=== PATIENT | female | born 1940 | race Two or more races ===

== ENCOUNTER → 2024-04-28 | Outpatient (CLI) | payer MEDICARE, SELFPAY ==
[2024-04-28 16:05] LABS: Collection Type, Urine Clean Catch
[2024-04-28 16:34] LABS: Bacteria,Urine 1+; Bilirubin,Urine Negative (Negative); Blood,Urine Negative (Negative); Color,Urine Lt-Yellow (Lt Yel-Yel); Glucose, Urine Negative (Negative); Ketones,Urine Negative (Negative); Leukocyte Esterase,Urine Positive (Negative); Nitrite,Urine Negative (Negative); PH,Urine 6.5 (5.0-7.0); Protein,Urine Negative (Neg - Trace); RBC,Urine 2 /hpf (0-3); Specific Gravity,Urine 1.008 (1.001-1.035); Squamous Epithelial Cell,Urine 1 /hpf (0-5); Urobilinogen,Urine Negative mg/dL (0.0-1.0); WBC,Urine 3 /hpf (0-5)
[2024-04-28 16:50] LABS: Clarity,Urine Hazy (Clear/Hazy)
== END | disposition home or self-care (01) ==
LOC: SLDO 14:25
PROVIDERS: PCP Family Medicine; Referring Provider Family Medicine; Visit Provider Family Medicine
DX: N30.00 Acute cystitis without hematuria (principal)
CPT/HCPCS: 81001; 87077; 87086; 87186

== ENCOUNTER → 2024-08-23 | Outpatient (CLI) | payer MEDICARE, MEDICAID, SELFPAY ==
[2024-08-23 10:51] LABS: Basophils % (Auto) 0 % (0-2.5); Eosinophils % (Auto) 0 % (0-10); Hematocrit 32.2 % (36.0-46.0); Hemoglobin 10.8 g/dL (12.0-16.0); Immature Granulocytes % (Auto) 4 % (0-0); Immature Granulocytes Auto 0.21 Thou/mm3 (0.00-0.00); Lymphocytes # (Auto) 1.5 Thou/mm3 (1.0-4.8); Lymphocytes % (Auto) 30 % (10-50); Mean Corpuscular HGB Conc 33.5 g/dl (31.0-37.0); Mean Corpuscular Hemoglobin 33.6 pg (25.0-35.0); Mean Corpuscular Volume 100 fL (80-100); Monocytes # (Auto) 0.6 Thou/mm3 (0.0-0.8); Monocytes % (Auto) 11 % (0-12); Neutrophils # (Auto) 2.6 Thou/mm3 (1.8-7.7); Neutrophils % (Auto) 54 % (37-80); Nucleated Red Blood Cell % 0 /100 WBC (0); Platelet Count 174 Thou/mm3 (140-440); RDW Standard Deviation 45.8 fL (36.4-46.3); Red Blood Count 3.21 Miln/mm3 (4.00-5.20); White Blood Count 4.8 Thou/mm3 (3.6-11.0)
[2024-08-23 11:07] LABS: Collection Type, Urine Clean Catch
[2024-08-23 11:08] LABS: Alanine Aminotransferase 13 U/L (10-49); Albumin, Serum 4.5 gm/dL (3.4-4.8); Albumin/Globulin Ratio 1.4 (1.2-2.2); Alkaline Phosphatase 70 U/L (46-116); Anion Gap 9 (7-16); Aspartate Amino Transferase 22 U/L (0-34); BUN/Creatinine Ratio 19 Ratio (12-20); Bilirubin,Total 0.6 mg/dL (0.3-1.2); Blood Urea Nitrogen 19 mg/dL (9-23); Carbon Dioxide 28.3 mMol/L (20.0-31.0); Cardiac Risk Estimate 3.2 RATIO (3.7-5.6); Chloride 106 mMol/L (98-107); Cholesterol 185 mg/dL (132-200); Globulin 3.3 gm/dL (2.3-3.5); Glucose 109 mg/dL (74-106); HDL Cholesterol 58 mg/dL (40-60); LDL Cholesterol,Calculated 107 mg/dL (0-130); Osmolality,Calculated 288 (275-295); Potassium 3.7 mMol/L (3.4-5.1); Sodium 143 mMol/L (136-145); Thyroid Stimulating Hormone 0.88 uIU/mL (0.55-4.78); Total Protein 7.8 gm/dL (5.7-8.2); Triglycerides 99 mg/dL (30-150); eGFR 55 See Note
[2024-08-23 11:28] LABS: Bilirubin,Urine Negative (Negative); Blood,Urine Trace (Negative); Clarity,Urine Clear (Clear/Hazy); Color,Urine Lt-Yellow (Lt Yel-Yel); Glucose, Urine Negative (Negative); Ketones,Urine Negative (Negative); Leukocyte Esterase,Urine Positive (Negative); Nitrite,Urine Negative (Negative); PH,Urine 6.5 (5.0-7.0); Protein,Urine Negative (Neg - Trace); RBC,Urine 3 /hpf (0-3); Specific Gravity,Urine 1.011 (1.001-1.035); Squamous Epithelial Cell,Urine 1 /hpf (0-5); Urobilinogen,Urine Negative mg/dL (0.0-1.0); WBC,Urine 4 /hpf (0-5)
== END | disposition home or self-care (01) ==
LOC: COPL 10:08
PROVIDERS: PCP Family Medicine; Referring Provider Family Medicine; Visit Provider Family Medicine
DX: I10 Essential (primary) hypertension (principal)
CPT/HCPCS: 36415; 80053; 80061; 81001; 84443; 85025

== ENCOUNTER 2024-09-06 18:08 | Emergency (ER) | payer MEDICARE, MEDICAID, SELFPAY ==
[2024-09-06 18:50] VITALS: BP 171/71; PULSE 74; RESP 20; TEMP 36.7; O2SAT 95; BMI 20.5
--- NOTE | 2024-09-06 19:28 | XR_ITS ---
Examination: PA lateral chest 2 views TECHNIQUE: Upright PA and lateral chest 2 views Date and time: September 06, 20242055 hours INDICATIONS: Night sweats weakness shortness of breath one week. FINDINGS: Normal heart size. Ectatic thoracic aorta. Hyperexpansion with increased AP dimension chest Kyphosis dorsal spine with prominent osteopenia IMPRESSION: Significant hyperexpansion No pneumonia or pulmonary edema
[2024-09-06 19:44] LABS: Collection Type, Urine Clean Catch
--- NOTE | 2024-09-06 19:59 | PD.EDURI ---
Upper Respiratory Inf. RME/HPI General Chief Complaint: Flu Like Symptoms Stated Complaint: LACK OF APPETITE, COLD SWEATS, Time Seen by Provider: 09/06/24 19:26 Arrival date/time: 09/06/24 18:08 84-year-old female presents with daughter who shows concern as patient believes that there is something terribly wrong with her as she has been having night sweats and during the day she covers her self with a heavy blanket. Denies any other symptoms. Mode of arrival: ambulatory Limitations: no limitations RME / HPI MD Complaint: other (Night sweats, daytime chills) Onset (ago): week(s) (2 weeks) Severity: moderate Severity scale (1-10): 5 Relieving factors: nothing Related Data Allergies Allergy/AdvReac Type Severity Reaction Status Date / Time NKA* Allergy Uncoded 09/06/24 18:11 Review of Systems Constitutional Constitutional: Reports system reviewed and no additional complaints, except as documented Eyes Eyes: Reports system reviewed and no additional complaints, except as documented, Denies dry eyes, Denies exophthalmos and Reports floaters Cardiovascular Cardiovascular: Denies chest pain with activity and Denies claudication ED Exam General Limitations: Present no limitations General appearance: Present alert and in no apparent distress Head Head exam: Present atraumatic Eye Eye exam: Present normal appearance, PERRL and EOMI ENT ENT exam: Present normal exam, normal oropharynx and mucous membranes moist Neck Neck exam: Present normal inspection, full ROM and trachea midline Chest Chest inspection: Present normal inspection and symmetric chest wall rise Respiratory Respiratory exam: Present normal lung sounds bilaterally Cardiovascular Cardiovascular exam: Present regular rate, normal rhythm and normal heart sounds Abdominal Exam Abdominal exam: Present soft and normal bowel sounds Extremities Exam Extremities exam: Present normal inspection and full ROM Back Exam Back exam: Present normal inspection and full ROM Neurological Exam Neurological exam: Present alert, oriented X3 and CN II-XII intact Psychiatric Psychiatric exam: Present normal affect and normal mood Skin Skin exam: Present warm, dry, intact and normal color Course Quality Measures none Orders Category Date Time Status EKG (ED ONLY) *Do not use* NOW Care 09/06/24 22:[address] head/brain wo con Stat Exams 09/06/24 22:25 Taken EKG (ED Only) Urgent Exams 09/06/24 22:25 Draft XR chest 2V Stat Exams 09/06/24 19:28 Completed CBC Stat Lab 09/06/24 19:42 Completed CMP [Comprehensive Metabolic Panel] Stat Lab 09/06/24 19:42 Completed Free T3 Stat Lab 09/06/24 19:42 Completed Free T4 (Free Thyroxine) Stat Lab 09/06/24 19:42 Completed Mag [Magnesium] Stat Lab 09/06/24 19:42 Completed Troponin I Stat Lab 09/06/24 19:42 Completed UA [Urinalysis] Stat Lab 09/06/24 19:40 Completed Vital Signs Vital signs: Vital Signs Temperature 98.1 F 09/06/24 18:50 Pulse Rate 74 09/06/24 18:50 Respiratory Rate 20 09/06/24 18:50 Blood Pressure 171/71 H 09/06/24 18:50 Pulse Oximetry (%) 95 09/06/24 18:50 Oxygen Delivery Method Room Air 09/06/24 18:50 Pulse ox 95% room air Upper Respiratory Infection MDM Narrative MDM Narrative:: Patient will be made aware of her CT of the head as well as the blood work including the urine. Patient is to primary care physician for follow-up to today's visit and she should do this soon. Patient data External records reviewed:: Other (specify) Clinical information provided by:: none Social determinants that could affect healthcare access:: none Patient has the following chronic illnesses:: N/A How is presenting disease/condition affected by chronic disease/condition?: no chronic disease Evaluation data The following diagnostics were reviewed and interpreted by me:: other (specify) Lab and/or radiology exams considered but not ordered:: N/A Interpretation Summary: N/A Medications / Prescriptions Medications or Prescriptions considered but not ordered:: N/A Medication administrations:: N/A Consultations Consultation(s) initiated? (list below): No Diagnosis Upper Respiratory Differential Diagnosis: sinusitis, bronchitis, influenza and pharyngitis Most likely diagnosis given after review of the tests above:: N/A Admission Indicated Admission indicated?: not indicated Admission Request Was there a request for admission?: No Disposition Plan Disposition Plan: Discharge Discharge Attestation Discharge Attestation: The patient and all family members were given an opportunity to ask questions and understood the discharge instructions. Discharge instructions specifically effects, indications for sooner follow up or return to the emergency department, and the expected course of current diagnosis. Patient condition: Stable Discharge Plan Plan Patient Disposition: HOME (Self Care) Discharge Disposition comment: Patient discharged in no apparent distress Patient condition on transfer: Stable Prescriptions/Referrals Referrals: Catarina Noguera MD [Primary Care Provider] - In 1 week Problem List Clinical Impression: Generalized weakness Patient/Caregiver Discharge Instructions Discharge Activity: activity as tolerated Print Language: Andorran PA/PILOT SAFETY INSPECTOR Supervising Physician PA/PILOT SAFETY INSPECTOR Supervising Physician: MARLI
[2024-09-06 20:00] LABS: Bilirubin,Urine Negative (Negative); Blood,Urine Negative (Negative); Clarity,Urine Clear (Clear/Hazy); Color,Urine Lt-Yellow (Lt Yel-Yel); Glucose, Urine Negative (Negative); Ketones,Urine Negative (Negative); Leukocyte Esterase,Urine Negative (Negative); Nitrite,Urine Negative (Negative); PH,Urine 7.5 (5.0-7.0); Protein,Urine Negative (Neg - Trace); RBC,Urine 6 /hpf (0-3); Specific Gravity,Urine 1.015 (1.001-1.035); Squamous Epithelial Cell,Urine 1 /hpf (0-5); Urobilinogen,Urine Negative mg/dL (0.0-1.0); WBC,Urine 2 /hpf (0-5)
[2024-09-06 20:01] LABS: Basophils % (Auto) 0 % (0-2.5); Eosinophils % (Auto) 0 % (0-10); Hematocrit 31.7 % (36.0-46.0); Hemoglobin 10.9 g/dL (12.0-16.0); Immature Granulocytes % (Auto) 3 % (0-0); Immature Granulocytes Auto 0.25 Thou/mm3 (0.00-0.00); Lymphocytes # (Auto) 1.9 Thou/mm3 (1.0-4.8); Lymphocytes % (Auto) 25 % (10-50); Mean Corpuscular HGB Conc 34.4 g/dl (31.0-37.0); Mean Corpuscular Hemoglobin 34.2 pg (25.0-35.0); Mean Corpuscular Volume 99 fL (80-100); Monocytes # (Auto) 0.9 Thou/mm3 (0.0-0.8); Monocytes % (Auto) 11 % (0-12); Neutrophils # (Auto) 4.8 Thou/mm3 (1.8-7.7); Neutrophils % (Auto) 61 % (37-80); Nucleated Red Blood Cell % 0 /100 WBC (0); Platelet Count 190 Thou/mm3 (140-440); RDW Standard Deviation 45.8 fL (36.4-46.3); Red Blood Count 3.19 Miln/mm3 (4.00-5.20); White Blood Count 7.9 Thou/mm3 (3.6-11.0)
[2024-09-06 20:23] LABS: Alanine Aminotransferase 12 U/L (10-49); Albumin, Serum 4.7 gm/dL (3.4-4.8); Albumin/Globulin Ratio 1.5 (1.2-2.2); Alkaline Phosphatase 90 U/L (46-116); Anion Gap 7 (7-16); Aspartate Amino Transferase 23 U/L (0-34); BUN/Creatinine Ratio 24 Ratio (12-20); Bilirubin,Total 0.3 mg/dL (0.3-1.2); Blood Urea Nitrogen 22 mg/dL (9-23); Calcium 10.2 mg/dL (8.3-10.6); Calcium (Corrected) 10.2 mg/dL (8.5-10.1); Carbon Dioxide 27.3 mMol/L (20.0-31.0); Chloride 102 mMol/L (98-107); Creatinine (Component) 0.9 mg/dL (0.6-1.3); Estimated Creatinine Clearance 27.3 mL/min (>60); Globulin 3.2 gm/dL (2.3-3.5); Glucose 121 mg/dL (74-106); Osmolality,Calculated 276 (275-295); Potassium 4.1 mMol/L (3.4-5.1); Sodium 136 mMol/L (136-145); Total Protein 7.9 gm/dL (5.7-8.2); eGFR > 60 See Note
--- NOTE | 2024-09-06 22:25 | XR_ITS ---
Examination: CT brain head without contrast. 2-D sagittal coronal reconstructions Date and time of exam:September 07, 2024 0018 hours Lack of appetite and head pain 2 weeks CTDI: vol (mGy):43.8 DLP: (mGycm):842 Technique: Multiple CT axial sections of the brain have been obtained, 5 mm slice thickness. Contrast has not been administered. 2-D sagittal, coronal reconstructions have been obtained Low dose protocols were performed. One or more of the following dose reduction techniques were used; automated exposure control, adjustment of the mA and/or KV according to patient size, use of iterative reconstruction technique. Findings: No significant ventricular enlargement. Focal calcified granuloma in the left parietal lobe The ethmoid sphenoid chronic sinusitis, fluid levels in the sphenoid air cells Intra-axial or extra-axial hemorrhage density is not seen. No mass effect or midline shift Basal cisterns are not remarkable. Fourth ventricle is midline. Cranial vault intact. Impression: Negative for acute hemorrhage, mass effect or midline shift Acute sphenoid sinusitis
--- NOTE | 2024-09-06 22:25 | EKG_ITS ---
[facility] Test Date: 2024-09-06 Pat Name: DANIEL LE Department: Room: - Gender: Female Marketing Administrator: : 1940 Requested By: Obed Salguero Order Number: [id number] Reading MD: Obed Salguero Measurements Intervals [place] Rate: 75 P: 62 SC: 152 QRS: 46 QRSD: 74 T: 41 QT: 340 QTc: 381 Interpretive Statements SINUS RHYTHM No previous ECG available for comparison /store/S0/[id number].pdf
[2024-09-06 22:59] LABS: Free T3 4.9 pg/mL (2.3-4.2); Free T4 (Free Thyroxine) 1.51 ng/dL (0.89-1.76); Magnesium 1.6 mg/dL (1.6-2.6); Troponin I < 0.020 ng/mL (0.0-0.045)
[2024-09-06 23:08] VITALS: BP 165/74; PULSE 78; RESP 18; TEMP 36.7; O2SAT 95
--- NOTE | 2024-09-07 00:49 | PRELIM_ITS ---
CT scan of the head without intravenous contrast (axial sections with sagittal and coronal reformats) September 07, 2024 0018 hours Clinical history: WEAK No prior study is available for comparison. Findings: There is no evidence of intracranial hemorrhage, mass effect or midline shift. There is focal calcification in the left parietal lobe, likely representing an old calcified granuloma. There are mild periventricular white matter hypodensities, likely representing chronic small vessel ischemia. There is mild to moderate volume loss. The calvarium is unremarkable. There is mild mucosal thickening in the bilateral ethmoid and sphenoid sinuses, with fluid levels in sphenoid sinuses. The mastoid air cells and the other visualized paranasal sinuses are clear. Impression: No evidence of intracranial hemorrhage, mass effect or midline shift. Focal calcification in the left parietal lobe, likely representing an old calcified granuloma. Periventricular chronic small vessel ischemia and volume loss. Sinus opacification as described. Report Electronically Signed By: Lyndon Ortega 09/07/2024 12:49:23 AM [EST]
[2024-09-07 01:34] VITALS: RESP 16
== END 2024-09-07 01:35 | disposition home or self-care (01) ==
PROVIDERS: Physician Assistant; Emergency Provider Emergency Medicine; PCP Family Medicine
DX: R53.1 Weakness (principal); R61 Generalized hyperhidrosis
CPT/HCPCS: 36415; 70450; 71046; 80053; 81001; 83735; 84439; 84481; 84484; 85025; 93005; 99284